=== PATIENT | female | born 1995 | race Hispanic/Latino ===

== ENCOUNTER 2020-12-06 19:39 | Emergency (ER) | payer OTHER ==
[2020-12-06 20:17] LABS: Pregnancy Test - Urine (BHCG) Negative (Negative); Pregu Control Background? CLEAR/WHITE (CLR/WHITE); Pregu Control Bar Appear? YES (CONTROL BAR); Specific Gravity 1.025 (1.002-1.036)
== END 2020-12-06 20:57 | disposition home or self-care (01) ==
LOC: CSHERS 19:39
DX: Z32.02 Encounter for pregnancy test, result negative (principal)
CPT/HCPCS: 81025; 99281

== ENCOUNTER 2021-10-23 10:39 | Outpatient (CLI) | payer OTHER | END 2021-10-23 10:40 | disposition home or self-care (01) | LOC: CSHULT 10:39 | PROVIDERS: ATTEND Family Medicine | DX: Z34.82 Encounter for supervision of other normal pregnancy, second trimester (principal); Z3A.21 21 weeks gestation of pregnancy | CPT/HCPCS: 76805 ==

== ENCOUNTER 2022-02-26 19:00 | Inpatient (IN) | payer BC, MEDICAID, OTHER ==
[2022-02-27] MEDS ORDERED: Bupivacaine PF 0.5% 30 ML VIAL ONE (08:00)
[2022-02-27] MEDS ORDERED: Bupivacaine 0.25% HCL 30 ML VIAL ONE (08:00)
[2022-02-27] MEDS ORDERED: Lidocaine 1% (PF) 30 ML VIAL SC PRN (18:02)
[2022-02-27] MEDS ORDERED: HYDROcodone/Acetaminophen 5/325 mg Tablet PO PRN (18:02)
[2022-02-27] MEDS ORDERED: Carboprost 250 MCG/ML AMP IM PRN (18:02)
[2022-02-27] MEDS ORDERED: hydrALAZINE 20 MG/ML VIAL SLOW IVP PRN (18:02)
[2022-02-27] MEDS ORDERED: Acetaminophen 500 MG TAB PO PRN (18:02)
[2022-02-27] MEDS ORDERED: Promethazine HCl 25 MG/ML VIAL IM PRN (18:02)
[2022-02-27] MEDS ORDERED: Ibuprofen 800 MG TAB PO PRN (18:02)
[2022-02-27] MEDS ORDERED: Misoprostol 200 MCG TAB PR PRN (18:02)
[2022-02-27] MEDS ORDERED: Lactated Ringer's 1,000 ML IV SCH (18:02)
[2022-02-27] MEDS ORDERED: Diphenoxylate HCl/Atropine Tablet PO PRN (18:02)
[2022-02-27] MEDS ORDERED: Butorphanol Tartrate 1 MG/ML VIAL SLOW IVP PRN (18:02)
[2022-02-27] MEDS ORDERED: NS w/ Oxytocin 30 units 500 ML IV SCH ×2 (18:02)
[2022-02-27 18:57] VITALS: BMI 41.7
[2022-02-27 19:12] LABS: Hemoglobin 10.6 g/dL (12.0-15.5); Mean Corpuscular HGB CONC 33.2 g/dL (32.0-36.0); Mean Corpuscular Hemoglobin 27.3 pg (27.0-33.0); Mean Corpuscular Volume 82.2 fl (81.6-98.3); Mean Platelet Volume 11.8 fl (7.4-10.4); Platelet Count 292 10x3/uL (150-450); RBC Distribution Width 14.4 % (11.5-14.5); Red Blood Cell (RBC) Count 3.88 10x6/uL (3.90-5.03); White Blood Cell (WBC) Count 10.3 10x3/uL (3.5-10.5)
[2022-02-27] MEDS: Misoprostol 100 MCG TAB VAG SCH (19:23)
[2022-02-27 19:43] LABS: Hep B Surf Ag Non-Reactive S/CO (NonReactive); Syphilis Antibody Nonreactive (Nonreactive); Syphilis Antibody Index 0.04 S/CO (<1.00 Non-Reactive)
[2022-02-27 19:44] LABS: HBSAg Index 0.14 S/CO (0-0.99)
[2022-02-27 20:30] LABS: SARS-CoV-2 NAA Rapid Test Not Detected (NotDetected)
[2022-02-28] MEDS: Misoprostol 100 MCG TAB VAG SCH ×2 (00:08→04:17)
[2022-02-28] MEDS ORDERED: Misoprostol 100 MCG TAB ONE (07:12)
[2022-02-28] MEDS: Ondansetron PF 4 MG/2 ML Vial IVP PRN ×2 (10:16→15:56)
[2022-02-28] MEDS ORDERED: Fentanyl 2 mcg/Bup 0.1% Cadd 100 ML ONE (16:27)
[2022-02-28] MEDS ORDERED: Promethazine HCl 25 MG/ML VIAL IM PRN (19:59)
[2022-02-28] MEDS ORDERED: diphenhydrAMINE 50 MG/ML VIAL IVP PRN (19:59)
[2022-02-28] MEDS ORDERED: Acetaminophen 325 MG TAB PO PRN (19:59)
[2022-02-28] MEDS ORDERED: Lactated Ringer's 500 ML IV PRN (19:59)
[2022-02-28] MEDS ORDERED: Moisturizing Cream (Eucerin) 113 GM JAR TOP PRN (19:59)
[2022-02-28] MEDS ORDERED: Naloxone HCl 0.4 mg/ml Vial IVP PRN ×2 (19:59)
[2022-02-28] MEDS ORDERED: Ondansetron PF 4 MG/2 ML Vial IVP PRN (19:59)
[2022-02-28] MEDS ORDERED: ePHEDrine Sulfate 50 MG/10 ML VIAL SLOW IVP PRN (19:59)
[2022-02-28] MEDS ORDERED: Fentanyl 2 mcg/Bupivacaine 0.1% Cassette 100 ML EPIDURAL SCH (20:00)
[2022-02-28] MEDS ORDERED: Communication Order-Pharmacy FS SCH (20:00)
[2022-03-01] MEDS ORDERED: hydrALAZINE 20 MG/ML VIAL ONE (02:04)
[2022-03-01] MEDS ORDERED: Magnesium Sulfate 20 gm/500 ml 20 GM/500 ML BAG ONE ×2 (04:02→22:35)
[2022-03-01] MEDS ORDERED: Carboprost 250 MCG/ML AMP ONE (04:08)
[2022-03-01] MEDS: Misoprostol 100 MCG TAB VAG SCH (04:41)
[2022-03-01] MEDS: CEFAZOLIN 2 GM in Sodium Chloride 0.9% 100 ML IVPB SCH ×3 (04:42→21:15)
[2022-03-01] MEDS ORDERED: Misoprostol 200 MCG TAB ONE (04:44)
[2022-03-01] MEDS ORDERED: Diphenoxylate HCl/Atropine Tablet PO SCH (04:45)
[2022-03-01] MEDS: metroNIDAZOLE 500 MG in Premix Bag 1 BAG IVPB SCH ×3 (05:30→22:33)
[2022-03-01] MEDS ORDERED: Lorazepam 2 MG/ML VIAL SLOW IVP PRN (05:55)
[2022-03-01] MEDS ORDERED: Calcium Gluc 4.6 MEQ/10 ML (100 MG/ML) SLOW IVP PRN (05:55)
[2022-03-01] MEDS ORDERED: Ondansetron PF 4 MG/2 ML Vial IVP PRN (05:55)
[2022-03-01] MEDS ORDERED: Promethazine HCl 25 MG/ML VIAL IM PRN (05:55)
[2022-03-01] MEDS ORDERED: diphenhydrAMINE 25 MG CAP PO PRN (05:55)
[2022-03-01] MEDS ORDERED: hydrALAZINE 20 MG/ML VIAL SLOW IVP PRN ×2 (05:55)
[2022-03-01] MEDS ORDERED: Lanolin Ointment 7 GM TUBE TOP PRN (05:55)
[2022-03-01] MEDS ORDERED: HYDROcodone/Acetaminophen 5/325 mg Tablet PO PRN ×2 (05:55)
[2022-03-01] MEDS ORDERED: Magnesium Sulfate 20 gm/500 ml 20 GM/500 ML BAG IVPB SCH (05:55)
[2022-03-01] MEDS ORDERED: Milk Of Magnesia 30 ML UDCUP PO PRN (05:55)
[2022-03-01] MEDS ORDERED: Labetalol HCl 100 MG/20 ML VIAL SLOW IVP PRN ×2 (05:55)
[2022-03-01] MEDS ORDERED: Boostrix 0.5 ML (Tdap) VIAL IM ONE (05:55)
[2022-03-01] MEDS ORDERED: NS w/ Oxytocin 30 units 500 ML IV SCH (05:55)
[2022-03-01] MEDS ORDERED: Bisacodyl 10 MG SUPP PR PRN (05:55)
[2022-03-01] MEDS ORDERED: Benzocaine-Menthol 82.5 ML CAN TOP PRN (05:55)
[2022-03-01] MEDS: Ibuprofen 800 MG TAB PO SCH (10:20)
[2022-03-01 16:14] LABS: Mean Corpuscular HGB CONC 33.2 g/dL (32.0-36.0); Mean Corpuscular Hemoglobin 27.5 pg (27.0-33.0); Mean Corpuscular Volume 82.8 fl (81.6-98.3); Mean Platelet Volume 11.5 fl (7.4-10.4); Platelet Count 234 10x3/uL (150-450); RBC Distribution Width 14.7 % (11.5-14.5); Red Blood Cell (RBC) Count 2.91 10x6/uL (3.90-5.03); White Blood Cell (WBC) Count 16.1 10x3/uL (3.5-10.5)
[2022-03-02] MEDS ORDERED: Magnesium Sulfate 20 gm/500 ml 20 GM/500 ML BAG IVPB SCH (04:00)
[2022-03-02] MEDS: CEFAZOLIN 2 GM in Sodium Chloride 0.9% 100 ML IVPB SCH ×3 (05:04→21:21)
[2022-03-02] MEDS: Ibuprofen 800 MG TAB PO SCH ×4 (06:40→21:21)
[2022-03-02] MEDS: metroNIDAZOLE 500 MG in Premix Bag 1 BAG IVPB SCH ×4 (06:41→23:05)
[2022-03-02] MEDS: Ferrous Sulfate 325 MG TAB PO SCH ×4 (08:44→21:20)
[2022-03-02] MEDS: Prenatal Vitamin 1 TAB PO SCH ×2 (08:45→09:23)
[2022-03-02] MEDS: Docusate 100 MG CAP PO SCH ×3 (08:45→21:20)
[2022-03-03] MEDS: CEFAZOLIN 2 GM in Sodium Chloride 0.9% 100 ML IVPB SCH ×2 (05:09→13:23)
[2022-03-03] MEDS: Ibuprofen 800 MG TAB PO SCH ×3 (05:10→22:20)
[2022-03-03] MEDS: cloNIDine 0.1 MG TAB PO PRN ×2 (05:25→16:51)
[2022-03-03] MEDS ORDERED: metroNIDAZOLE 500 MG/100 ML BAG ONE (05:48)
[2022-03-03] MEDS: metroNIDAZOLE 500 MG in Premix Bag 1 BAG IVPB SCH ×2 (06:00→14:55)
[2022-03-03] MEDS: Docusate 100 MG CAP PO SCH ×2 (08:06→22:20)
[2022-03-03] MEDS: Prenatal Vitamin 1 TAB PO SCH (08:06)
[2022-03-03] MEDS: Ferrous Sulfate 325 MG TAB PO SCH ×2 (08:06→16:51)
[2022-03-03] MEDS ORDERED: NIFEdipine XL 30 MG TAB PO SCH (18:30)
[2022-03-04] MEDS: Ibuprofen 800 MG TAB PO SCH (05:09)
[2022-03-04] MEDS: cloNIDine 0.1 MG TAB PO PRN (05:09)
[2022-03-04] MEDS ORDERED: NIFEdipine XL 30 MG TAB PO SCH (09:00)
[2022-03-04] MEDS: Ferrous Sulfate 325 MG TAB PO SCH (09:32)
[2022-03-04] MEDS: Docusate 100 MG CAP PO SCH (09:32)
[2022-03-04] MEDS: Prenatal Vitamin 1 TAB PO SCH (09:32)
[2022-03-04 11:28] VITALS: BP 138/90; TEMP 98
== END 2022-03-04 13:06 | disposition home or self-care (01) | DRG 807 ==
LOC: CSHLD 02-27 17:56 → CSHPP 03-02 06:05
PROVIDERS: ADMIT Family Medicine; ATTEND Family Medicine
PROC: 10E0XZZ Delivery of Products of Conception, External Approach (ICD-10-PCS; principal; 2022-03-01)
PROC: 10D17Z9 Manual Extraction of Products of Conception, Retained, Via Natural or Artificial Opening (ICD-10-PCS; 2022-03-01)
PROC: 3E0P7VZ Introduction of Hormone into Female Reproductive, Via Natural or Artificial Opening (ICD-10-PCS; 2022-03-01)
PROC: 0UQG7ZZ Repair Vagina, Via Natural or Artificial Opening (ICD-10-PCS; 2022-03-01)
DX: O99.214 Obesity complicating childbirth (principal); Z37.0 Single live birth; Z20.822 Contact with and (suspected) exposure to COVID-19; Z3A.39 39 weeks gestation of pregnancy; O62.2 Other uterine inertia; O73.0 Retained placenta without hemorrhage; O71.4 Obstetric high vaginal laceration alone
CPT/HCPCS: 36415; 51702; 85027; 86780; 86850; 86900; 86901; 87340; J0360; J0595; J0690; J2405; J3475; J3490; S0020; U0002

== ENCOUNTER 2024-04-29 19:00 | Inpatient (IN) | payer MEDICAID, OTHER ==
[~2024-04-29 19:00] MED LIST: Bupivacaine 0.25% HCL 30 ML VIAL ONE
[2024-04-29] MEDS ORDERED: Diphenoxylate HCl/Atropine Tablet PO PRN (21:08)
[2024-04-29] MEDS ORDERED: Ibuprofen 800 MG TAB PO PRN (21:08)
[2024-04-29] MEDS ORDERED: Acetaminophen 500 MG TAB PO PRN (21:08)
[2024-04-29] MEDS ORDERED: hydrALAZINE 20 MG/ML VIAL SLOW IVP PRN (21:08)
[2024-04-29] MEDS ORDERED: Misoprostol 200 MCG TAB PR PRN (21:08)
[2024-04-29] MEDS ORDERED: Promethazine HCl 25 MG/ML VIAL IM PRN (21:08)
[2024-04-29] MEDS ORDERED: Ondansetron PF 4 MG/2 ML Vial IVP PRN (21:08)
[2024-04-29] MEDS ORDERED: Lidocaine 1% (PF) 30 ML VIAL SC PRN (21:08)
[2024-04-29] MEDS ORDERED: Carboprost 250 MCG/ML AMP IM PRN (21:08)
[2024-04-29] MEDS ORDERED: Tranexamic Acid 1,000 MG/10 ML VIAL IVP PRN (21:08)
[2024-04-29] MEDS ORDERED: HYDROcodone/Acetaminophen 5/325 mg Tablet PO PRN (21:08)
[2024-04-29] MEDS ORDERED: Methylergonovine 0.2 MG/ML VIAL IM PRN (21:08)
[2024-04-29 21:18] VITALS: BMI 41.7
[2024-04-29] MEDS ORDERED: Oxytocin 30 units/NS 500 ML 500 ML IV SCH ×3 (21:30)
[2024-04-29 22:08] LABS: Hematocrit 32.3 % (34.9-44.5); Hemoglobin 10.4 g/dL (12.0-15.5); Mean Corpuscular HGB CONC 32.2 g/dL (32.0-36.0); Mean Corpuscular Hemoglobin 26.2 pg (27.0-33.0); Mean Corpuscular Volume 81.4 fL (81.6-98.3); Mean Platelet Volume 11.3 fL (7.4-10.4); Platelet Count 308 10x3/uL (150-450); RBC Distribution Width 16.6 % (11.5-14.5); Red Blood Cell (RBC) Count 3.97 10x6/uL (3.90-5.03); White Blood Cell (WBC) Count 9.2 10x3/uL (3.5-10.5)
[2024-04-29] MEDS: Misoprostol 100 MCG TAB PO SCH (22:14)
[2024-04-29] MEDS: Lactated Ringer's 1,000 ML IV SCH (22:14)
[2024-04-29 23:16] LABS: HBsAg Index 0.19 S/CO (0-0.99); Hep B Surf Ag - L&D Non-Reactive S/CO (NonReactive); Syphilis Antibody Nonreactive (Nonreactive); Syphilis Antibody Index 0.04 S/CO (<1.00 Non-Reactive)
[2024-04-30] MEDS: fentaNYL 50 mcg/mL 1 mL Vial SLOW IVP PRN (03:17)
[2024-04-30] MEDS ORDERED: Lactated Ringer's 500 ML IV PRN (10:24)
[2024-04-30] MEDS ORDERED: Moisturizing Cream (Eucerin) 113 GM JAR TOP PRN (10:24)
[2024-04-30] MEDS ORDERED: Naloxone HCl 0.4 mg/ml Vial IVP PRN ×2 (10:24)
[2024-04-30] MEDS ORDERED: Promethazine HCl 25 MG/ML VIAL IM PRN ×2 (10:24→17:36)
[2024-04-30] MEDS ORDERED: diphenhydrAMINE 50 MG/ML VIAL IVP PRN (10:24)
[2024-04-30] MEDS ORDERED: Ondansetron PF 4 MG/2 ML Vial IVP PRN ×2 (10:24→17:36)
[2024-04-30] MEDS ORDERED: ePHEDrine Sulfate 50 MG/10 ML VIAL SLOW IVP PRN (10:24)
[2024-04-30] MEDS ORDERED: fentaNYL 2 mcg/Ropivacaine 0.2% Epidural 100 ML CADD EPIDURAL SCH (10:30)
[2024-04-30] MEDS ORDERED: ACTIVE EPIDURAL FS SCH (10:30)
[2024-04-30] MEDS ORDERED: Milk Of Magnesia 30 ML UDCUP PO PRN (17:36)
[2024-04-30] MEDS ORDERED: HYDROcodone/Acetaminophen 5/325 mg Tablet PO PRN (17:36)
[2024-04-30] MEDS ORDERED: Boostrix 0.5 ML (Tdap) VIAL (>/=7 yrs of age) IM ONE (17:36)
[2024-04-30] MEDS ORDERED: Bisacodyl 10 MG SUPP PR PRN (17:36)
[2024-04-30] MEDS ORDERED: Lanolin Ointment 7 GM TUBE TOP PRN (17:36)
[2024-04-30] MEDS ORDERED: diphenhydrAMINE 25 MG CAP PO PRN (17:36)
[2024-04-30] MEDS ORDERED: hydrALAZINE 20 MG/ML VIAL SLOW IVP PRN (17:36)
[2024-04-30] MEDS: Ibuprofen 800 MG TAB PO SCH (17:59)
[2024-04-30] MEDS: Magnesium Sulfate 20 gm/500 ml 0 GM/0 ML BAG ONE (21:53)
[2024-04-30] MEDS: fentaNYL/Ropivacaine Epidural 100 ML ONE (21:54)
[2024-04-30] MEDS: Ferrous Sulfate 325 MG TAB PO SCH (21:57)
[2024-04-30] MEDS: Docusate 100 MG CAP PO SCH (21:58)
[2024-05-01] MEDS: Acetaminophen 325 MG TAB PO PRN (05:25)
[2024-05-01] MEDS: Ferrous Sulfate 325 MG TAB PO SCH (07:16)
[2024-05-01] MEDS: Prenatal Vitamin 1 TAB PO SCH (09:36)
[2024-05-01 11:24] VITALS: BP 118/71; TEMP 97.8
== END 2024-05-01 17:25 | disposition home or self-care (01) | DRG 807 ==
LOC: CSHLD 20:51 → CSHPP 04-30 17:10
PROVIDERS: ADMIT Family Medicine; ATTEND Family Medicine
PROC: 10907ZC Drainage of Amniotic Fluid, Therapeutic from Products of Conception, Via Natural or Artificial Opening (ICD-10-PCS; 2024-04-29)
PROC: 3E0P7VZ Introduction of Hormone into Female Reproductive, Via Natural or Artificial Opening (ICD-10-PCS; 2024-04-29)
PROC: 10E0XZZ Delivery of Products of Conception, External Approach (ICD-10-PCS; principal; 2024-04-30)
PROC: 0KQM0ZZ Repair Perineum Muscle, Open Approach (ICD-10-PCS; 2024-04-30)
PROC: 3E033XZ Introduction of Vasopressor into Peripheral Vein, Percutaneous Approach (ICD-10-PCS; 2024-04-30)
DX: O70.1 Second degree perineal laceration during delivery (principal); Z37.0 Single live birth; Z3A.39 39 weeks gestation of pregnancy
CPT/HCPCS: 51702; 85027; 86780; 86850; 86900; 86901; 87340; J0665; J3010; J7120